=== PATIENT | male | born 1975 ===

== ENCOUNTER 2022-10-16 17:06 | Emergency (ER) | payer SELFPAY ==
[2022-10-16 17:08] VITALS: BP 119/76; PULSE 81; RESP 17; TEMP 36.1; O2SAT 100
--- NOTE | 2022-10-16 17:25 | PC.NURSE ---
Patient came up to the triage desk to notify staff that he was going to leave and come back on Thursday . Patient encouraged to stay but declined.
== END 2022-10-16 19:14 | disposition left against medical advice (07) ==
DX: L02.32 Furuncle of buttock (principal)
CPT/HCPCS: 99199